=== PATIENT | female | born 1955 | race Caucasian/White ===

== ENCOUNTER 2018-05-17 22:23 | Emergency (ER) | payer MEDICAID ==
[2018-05-17] MEDS ORDERED: diphenhydrAMINE 25 MG Cap PO ONE (23:33)
--- NOTE | 2018-05-17 23:35 | EDM.PDOC ---
ED HPI GENERAL MEDICAL PROBLEM - General Chief Complaint: Allergic Reaction Stated Complaint: REACTION TO MED? Time Seen by Provider: 05/17/18 23:24 Source of Information: Reports: Patient, Family, RN Notes Reviewed History Limitations: Reports: No Limitations - History of Present Illness INITIAL COMMENTS - FREE TEXT/NARRATIVE: Recently started on 3 medications Combivent, levofloxacin, hydrochlorothiazide over the last 24 hours she feels that it might be hard to breathe and she's developed a rash on her lower extremities with some edema - Related Data Allergies Allergy/AdvReac Type Severity Reaction Status Date / Time No Known Allergies Allergy Verified 05/17/18 22:56 Home Meds: Home Meds Calcium Carb & Citrate/Vit D3 [Calcium + Vitamin D3 Caplet] 1 each PO DAILY [History] Omeprazole [Prilosec] 20 mg PO DAILY 08/19/14 [History] Albuterol/Ipratropium [Combivent Respimat] 4 gm IH QID 05/17/18 [History] Hydrochlorothiazide 12.5 mg PO DAILY 05/17/18 [History] Levofloxacin 500 mg PO DAILY 05/17/18 [History] Warfarin [Coumadin] 10 mg PO DAILY 05/17/18 [History] Past Medical History HEENT History: Reports: Impaired Vision Cardiovascular History: Reports: Blood Clots/VTE/DVT Other Cardiovascular History: had blood clots in lungs 4 years ago and then came back 4 weeks ago Gastrointestinal History: Reports: GERD, Hiatal Hernia 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 Denies: Wheezing Cardiovascular: Reports: No Symptoms GI/Abdominal: Reports: No Symptoms : Reports: No Symptoms Musculoskeletal: Reports: No Symptoms Skin: Reports: Pruritis, Rash ED EXAM GENERAL NO PERIP PULSE - Physical Exam Exam: See Below Exam Limited By: No Limitations General Appearance: Alert, WD/WN, No Apparent Distress Throat/Mouth: No Airway Compromise Respiratory/Chest: No Respiratory Distress, Lungs Clear, Normal Breath Sounds, No Accessory Muscle Use Cardiovascular: Regular Rate, Rhythm, No Murmur Skin Exam: Rash Course - Vital Signs Last Recorded V/S: Last Vital Signs Temp 97.7 F 05/17/18 23:12 Pulse 63 05/17/18 23:12 Resp 18 05/17/18 23:12 BP 142/71 H 05/17/18 23:51 Pulse Ox 97 05/17/18 23:12 - Orders/Labs/Meds Meds: Medications Discontinued Medications Generic Name Dose Route Start Last Admin Trade Name Freq PRN Reason Stop Dose Admin Diphenhydramine HCl 25 mg 05/17/18 23:33 05/17/18 23:48 Benadryl PO 05/17/18 23:34 25 mg ONETIME ONE Administration Departure - Departure Time of Disposition: 00:26 Disposition: Home, Self-Care 01 Condition: Good Clinical Impression: Medication reaction Qualifiers: Encounter type: initial encounter Qualified Code(s): T50.905A - Adverse effect of unspecified drugs, medicaments and biological substances, initial encounter - Discharge Information Referrals: Kel Jackson MD [Primary Care Provider] - Forms: ED Department Discharge Additional Instructions: Please keep your follow-up with your primary care tomorrow - Assessment/Plan Plan: Assessment Acuity = acute Site and laterality = medication reaction Etiology = unclear etiology Manifestations = none Location of injury = Home Lab values = none Plan She had good relief with Benadryl provided in emergency department plan is to stop all 3 of the medications she has a follow-up with her primary care tomorrow This note was dictated using [employer] voice recognition software please call with any questions on syntax or grammar.
[2018-05-17 23:52] VITALS: BP 142/71
== END 2018-05-18 00:37 | disposition home or self-care (01) ==
LOC: JP.ED 22:23
DX: L27.1 Localized skin eruption due to drugs and medicaments taken internally (principal); T48.6X5A Adverse effect of antiasthmatics, initial encounter; T36.8X5A Adverse effect of other systemic antibiotics, initial encounter; T50.2X5A Adverse effect of carbonic-anhydrase inhibitors, benzothiadiazides and other diuretics, initial encounter; Z79.899 Other long term (current) drug therapy
CPT/HCPCS: 99283; A9270

== ENCOUNTER 2018-08-07 06:58 | Day surgery (SDC) | payer MEDICARE, BC ==
[2018-08-07] MEDS ORDERED: fentaNYL 100 MCG/2 ML SDV ONE (07:12)
[2018-08-07] MEDS ORDERED: Propofol 200 MG/20 ML SDV ONE ×2 (07:12→09:13)
[2018-08-07] MEDS ORDERED: Midazolam 1 MG/ML 2 ML SDV ONE (07:12)
[2018-08-07] MEDS ORDERED: Dextrose 5%-Lactated Ringers 1,000 ML IV SCH (07:45)
[2018-08-07] MEDS ORDERED: Glycopyrrolate 0.2 MG/ML 2 ML SDV IVPUSH ONE (08:30)
[2018-08-07] MEDS ORDERED: Barium Sulfate 105% w/v Susp 1,900 ML Bottle PO ONE (09:51)
--- NOTE | 2018-08-07 11:00 | CR ---
Barium Enema Comp HISTORY: incomplete colonoscopy unable to advance scope FINDINGS: Single contrast barium enema study is obtained in the usual fashion. An enteric colon is fi lled to the level of the cecum. Contrast did not reflux into the terminal ileum. The colon appears wi thin normal limits in course and caliber. No constricting or obstructing mass lesion, polypoid fillin g defect, or mucosal abnormality is identified. Multiple diverticula are noted in the sigmoid colon. IMPRESSION: Mild diverticulosis sigmoid colon. No other abnormality of the colon is identified.
[2018-08-07 11:51] VITALS: BP 136/85
--- NOTE | 2018-08-11 07:46 | OR ---
DATE OF PROCEDURE: 08/07/2018 PREOPERATIVE DIAGNOSES: 1. History of large hiatal hernia. 2. Indications for screening colonoscopy. POSTOPERATIVE DIAGNOSES: 1. Large hiatal hernia with active gastroesophageal reflux disease. 2. Sigmoid colon diverticulosis with extremely redundant sigmoid colon preventing full colonoscopy. PROCEDURE: 1. Esophagogastroduodenoscopy with biopsy of esophagogastric junction. 2. Flexible colonoscopy (incomplete). ANESTHESIA: IV sedation. INDICATIONS FOR PROCEDURE: This is a 62-year-old female presenting with worsening gastroesophageal reflux symptoms. She was noted on imaging to have a large hiatal hernia and is interested in having a Michelle fundoplication, and in preparation for that to make sure there are no problems such as Warren's esophagus or other more advanced fundic changes, as well as assessing the overall anatomy, the patient is undergoing upper endoscopy with biopsies as indicated. The patient also meets criteria for screening colonoscopy, and that will be performed concurrently. Potential risks including bleeding and perforation were discussed, and the patient wishes to proceed. DESCRIPTION OF PROCEDURE: The patient was taken to the operating room and placed in a left lateral decubitus position. IV sedation was administered, after which the upper GI endoscope was passed orally through the length of the esophagus and into the stomach with retroflexion view of the fundus, thereafter through the pyloric channel and into the junction of the third and fourth portions of the duodenum. Findings included normal hypopharynx, larynx, upper esophageal sphincter, and esophageal body. The patient was noted to have a fairly large hiatal hernia, this measuring around 10 cm, and was associated with very active gastroesophageal reflux disease with there being linear upward extensions of the mucosal lining that were at this point reddened. These were not bleeding but certainly were intensely inflamed. There was no plaquing or stricturing or suggestion of neoplastic change. Within the stomach, there was no significant inflammation noted, and the visualized portions of the pyloric channel and duodenum were unremarkable. At this point, biopsies were obtained from esophagogastric junction, and minimal bleeding from the biopsy sites was seen and the procedure was then concluded. Attention was then taken to the colonoscopy. The initial digital rectal exam was performed, it was unremarkable. Colonoscope was passed into the rectum with retroflexion revealing some otherwise uncomplicated hemorrhoidal columns. The scope was able to be passed to roughly 40 cm. The patient was noted to that level to have somewhat complicated diverticulosis, likely related to the patient's sigmoid colon being very redundant. The scope could not be passed proximal to what essentially would be the area of the descending colon-sigmoid colon junction. As one manipulated the scope upward, it simply would not go around the sigmoid colon bend, and at that point, we decided, after various attempts at different positioning and such, to end the colonoscopy and complete the exam by means of the barium enema. The patient was taken to the recovery room in satisfactory condition. There were no evident complications. The patient subsequently underwent a barium enema x-ray that showed uncomplicated diverticulosis, but otherwise no pathology was seen, and the patient should undergo either repeat colonoscopy or barium enema x-ray in 10 years. With regard to the hiatal hernia, the patient would like to proceed with repair of this. This will be scheduled for mid August, as she has an upcoming trip. Royer Jones MD /[id number]
== END 2018-08-07 11:45 | disposition home or self-care (01) ==
LOC: JP.SDS 06:58
PROVIDERS: ATTEND Surgery
DX: K21.0 Gastro-esophageal reflux disease with esophagitis (principal); K44.9 Diaphragmatic hernia without obstruction or gangrene; Z12.11 Encounter for screening for malignant neoplasm of colon; K57.30 Diverticulosis of large intestine without perforation or abscess without bleeding; K31.89 Other diseases of stomach and duodenum; K63.89 Other specified diseases of intestine; E66.01 Morbid (severe) obesity due to excess calories; Z86.711 Personal history of pulmonary embolism; Z79.01 Long term (current) use of anticoagulants; Z88.1 Allergy status to other antibiotic agents
CPT/HCPCS: 43239; 45330; 74270; 88305; J2250; J2704; J3010; J3490; J7042

== ENCOUNTER 2021-03-18 15:53 | Emergency (ER) | payer MEDICARE, BC ==
[2021-03-18 16:07] VITALS: BP 150/99; PULSE 91
[2021-03-18] MEDS ORDERED: Bacitracin Oint 1 GM U/D Packet TOP ONE (16:28)
--- NOTE | 2021-03-18 17:32 | EDM.PDOC ---
ED HPI GENERAL MEDICAL PROBLEM - General Chief Complaint: Laceration Stated Complaint: CUT IN LT LEG Time Seen by Provider: 03/18/21 16:15 Source of Information: Reports: Patient, Family History Limitations: Reports: No Limitations - History of Present Illness INITIAL COMMENTS - FREE TEXT/NARRATIVE: 65-year-old female stumbled in the [place] today jamming the lateral aspect of her left lower leg into a sharp branch sticking out of a tree resulting in a laceration to her leg. The laceration occurred through her jeans, it did not lacerate the gene and the stick itself did not penetrate the wound. She has a 7.7 cm V shaped avulsion laceration on the lateral aspect of the left lower leg distal to the knee. No difficulty with ambulation, she is on Coumadin which she is concerned about but she has no active bleeding. Onset: Sudden Duration: Hour(s): (Within the last hour) Location: Reports: Lower Extremity, Left Associated Symptoms: Reports: No Other Symptoms - Related Data Allergies Allergy/AdvReac Type Severity Reaction Status Date / Time levofloxacin [From Levaquin] Allergy Rash Verified 03/18/21 16:11 Home Meds: Home Meds Acetaminophen [Tylenol] 650 mg PO Q6H #50 tablet 09/10/18 [Rx] Warfarin [Coumadin] 10 mg PO DAILY 03/18/21 [History] Past Medical History HEENT History: Reports: Impaired Vision Cardiovascular History: Reports: Blood Clots/VTE/DVT Other Cardiovascular History: had blood clots in lungs 4 years ago and then came back 4 weeks ago Respiratory History: Reports: Other (See Below) Other Respiratory History: PE Gastrointestinal History: Reports: GERD, Hiatal Hernia, 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 Dermatologic History: vericose vein - Infectious Disease History Infectious Disease History: Reports: Chicken Pox, Measles - Past Surgical History Respiratory Surgical History: Reports: None GI Surgical History: Reports: Colonoscopy, EGD Other Musculoskeletal Surgeries/Procedures:: Foot surgery Social & Family History - Tobacco Use Tobacco Use Status *Q: Never Tobacco User - Caffeine Use Caffeine Use: Reports: Coffee Other Caffeine Use: couple cups in morning - Recreational Drug Use Recreational Drug Use: No ED ROS GENERAL - Review of Systems Review Of Systems: See Below Constitutional: Denies: Fever, Chills Respiratory: Denies: Shortness of Breath Cardiovascular: Denies: Chest Pain GI/Abdominal: Denies: Nausea, Vomiting Skin: Reports: Other (As described in HPI) Neurological: Denies: Paresthesia (No distal paresthesia) Psychiatric: Reports: No Symptoms ED EXAM, SKIN/RASH Exam: See Below Exam Limited By: No Limitations General Appearance: Alert, No Apparent Distress Head: Atraumatic Respiratory/Chest: No Respiratory Distress, Lungs Clear Cardiovascular: Regular Rate, Rhythm Extremities: Other (Exam is otherwise limited to the left lower extremity. Patient has a 7.5 cm V-shaped avulsion laceration to the lateral aspect of the lower leg distal to the knee. It extends into the subcutaneous tissue.) Psychiatric: Normal Affect, Normal Mood Course - Vital Signs Last Recorded V/S: Last Vital Signs Temp 36.4 F L 03/18/21 16:10 Pulse 91 03/18/21 16:10 Resp 16 03/18/21 16:10 BP 150/99 H 03/18/21 16:10 Pulse Ox 98 03/18/21 16:10 - Orders/Labs/Meds Meds: Medications Discontinued Medications Generic Name Dose Route Start Last Admin Trade Name Vincent PRN Reason Stop Dose Admin Bacitracin 1 dose 03/18/21 16:28 03/18/21 16:56 Bacitracin Oint 1 Gm U/D Packet TOP 03/18/21 16:29 1 dose ONETIME ONE Administration Lidocaine HCl 5 ml 03/18/21 16:28 03/18/21 16:56 Lidocaine 1% 5 Ml Sdv INJECT 03/18/21 16:29 5 ml ONETIME ONE Administration - Re-Assessments/Exams Free Text/Narrative Re-Assessment/Exam: 03/18/21 18:47 The wound was anesthetized with 1% lidocaine, flushed thoroughly with saline, and nine 4-0 Ethilon sutures were used to approximate the flap over the laceration. There was some skin tear at the distal end that was missing exposing some dermis but no subcutaneous tissue. Topical bacitracin and a nonadherent dressing were applied, this should be left on until Friday and the wound reexamined in the clinic. Departure - Departure Time of Disposition: 17:33 Disposition: Home, Self-Care 01 Clinical Impression: Laceration of left lower leg Qualifiers: Encounter type: initial encounter Qualified Code(s): S81.812A - Laceration without foreign body, left lower leg, initial encounter - Discharge Information Instructions: Laceration Care, Adult Referrals: Maeve Russell PA-C [Primary Care Provider] - Forms: ED Department Discharge Care Plan Goals: Recheck at the clinic Friday to redress and inspect the wound, consider Dr. Cintron if possible for an opinion as to the healing process. Keep the wound clean and covered while healing and increase activity as tolerated. Sepsis Event Note (ED) - Evaluation Sepsis Screening Result: No Definite Risk - Focused Exam Vital Signs: Vital Signs Temp Pulse Resp BP Pulse Ox 03/18/21 16:10 36.4 F L 91 16 150/99 H 98 03/18/21 16:05 97.5 F 91 16 150/99 H 98
== END 2021-03-18 17:41 | disposition home or self-care (01) ==
LOC: JP.ED 15:53
DX: S81.812A Laceration without foreign body, left lower leg, initial encounter (principal); Z88.1 Allergy status to other antibiotic agents; Z86.718 Personal history of other venous thrombosis and embolism; Z79.01 Long term (current) use of anticoagulants; W26.8XXA Contact with other sharp object(s), not elsewhere classified, initial encounter
CPT/HCPCS: 12002; 99282; 99282-25

== ENCOUNTER 2022-05-18 08:43 | Emergency (ER) | payer MEDICARE, BC ==
[2022-05-18 08:58] VITALS: BP 166/91; PULSE 90
== END 2022-05-18 10:08 | disposition home or self-care (01) ==
LOC: JP.ED 08:43
DX: R04.0 Epistaxis (principal); Z88.1 Allergy status to other antibiotic agents; Z86.711 Personal history of pulmonary embolism; Z79.01 Long term (current) use of anticoagulants; W22.8XXA Striking against or struck by other objects, initial encounter
CPT/HCPCS: 99281; 99283

== ENCOUNTER 2022-12-30 06:25 | Day surgery (SDC) | payer MEDICARE, BC ==
[2022-12-30] MEDS ORDERED: Dextrose 5%-Lactated Ringers 1,000 ML IV SCH (07:00)
[2022-12-30] MEDS ORDERED: fentaNYL 100 MCG/2 ML SDV ONE (07:15)
[2022-12-30] MEDS ORDERED: Propofol 200 MG/20 ML SDV ONE (07:15)
[2022-12-30 09:35] VITALS: BP 128/69; PULSE 72
== END 2022-12-30 09:47 | disposition home or self-care (01) ==
LOC: JP.SDS 06:25
PROVIDERS: ATTEND Surgery
DX: K31.A0 Gastric intestinal metaplasia, unspecified (principal); K29.60 Other gastritis without bleeding; K44.9 Diaphragmatic hernia without obstruction or gangrene; K21.9 Gastro-esophageal reflux disease without esophagitis; E66.9 Obesity, unspecified; Z68.38 Body mass index [BMI] 38.0-38.9, adult; Z88.1 Allergy status to other antibiotic agents; Z79.899 Other long term (current) drug therapy
CPT/HCPCS: 36415; 43239; 85610; 87081; J2704; J3010; J7121

== ENCOUNTER 2023-01-16 07:47 | Inpatient (IN) | payer MEDICARE, BC ==
[2023-01-16] MEDS ORDERED: fentaNYL 250 MCG/5 ML SDV ONE ×2 (07:52→11:24)
[2023-01-16] MEDS ORDERED: Glycopyrrolate 0.2 MG/ML 5 ML MDV ONE (07:53)
[2023-01-16] MEDS ORDERED: Ondansetron 4 MG/2 ML SDV ONE (07:53)
[2023-01-16] MEDS ORDERED: Dexamethasone 4 MG/ML SDV ONE (07:53)
[2023-01-16] MEDS ORDERED: Rocuronium 50 MG/5 ML Vial ONE (07:53)
[2023-01-16] MEDS ORDERED: Propofol 200 MG/20 ML SDV ONE (07:53)
[2023-01-16] MEDS ORDERED: Succinylcholine 200 MG/10 ML MDV ONE (07:53)
[2023-01-16] MEDS ORDERED: Neostigmine Methylsulfate 1 MG/ML 5 ML Syringe ONE (07:53)
[2023-01-16] MEDS ORDERED: Ondansetron 4 MG/2 ML SDV IVPUSH PRN ×2 (08:12→16:00)
[2023-01-16] MEDS ORDERED: diphenhydrAMINE 50 MG/ML SDV IVPUSH PRN ×2 (08:12→16:00)
[2023-01-16] MEDS ORDERED: diphenhydrAMINE 25 MG Cap PO PRN (08:12)
[2023-01-16] MEDS ORDERED: Naloxone 0.4 MG/ML SDV IVPUSH PRN (08:12)
[2023-01-16] MEDS ORDERED: Celecoxib 200 MG Cap PO SCH (08:15)
[2023-01-16] MEDS ORDERED: Scopolamine 1.5 MG Transdermal Patch TOP ONE (08:15)
[2023-01-16] MEDS: HYDROmorphone/Normal Saline 6 MG/30 ML PCA Vial IV PRN (08:24)
[2023-01-16] MEDS ORDERED: Dextrose 5%-Lactated Ringers 1,000 ML IV SCH (09:00)
[2023-01-16] MEDS ORDERED: Naloxone 0.4 MG/ML SDV IV PRN (09:00)
[2023-01-16] MEDS ORDERED: Bupivacaine 0.5% 50 ML MDV ONE (09:17)
[2023-01-16] MEDS ORDERED: Meropenem 500 MG SDV ONE (09:17)
[2023-01-16] MEDS ORDERED: Lidocaine 1% with EPINEPHrine 1:100,000 50 ML MDV ONE (09:17)
[2023-01-16] MEDS ORDERED: cefOXitin 2 GM in Sodium Chloride 0.9% 50 ML IV ONE (09:30)
[2023-01-16] MEDS ORDERED: Ketamine 500 MG/5 ML MDV IV SCH (09:45)
[2023-01-16] MEDS ORDERED: Ketamine 16 MG in Sodium Chloride 0.9% 19.84 ML IV SCH (09:45)
[2023-01-16] MEDS ORDERED: Labetalol 20 MG/4 ML Syringe ONE (11:25)
[2023-01-16] MEDS ORDERED: Lactated Ringers 1,000 ML ONE (11:32)
[2023-01-16] MEDS ORDERED: Cyclobenzaprine 10 MG Tab PO PRN (15:02)
[2023-01-16] MEDS: Dextrose 5%-Lactated Ringers 1,000 ML IV SCH ×2 (15:26→21:33)
[2023-01-16] MEDS: cefOXitin 2 GM in Sodium Chloride 0.9% 50 ML IV SCH ×2 (15:47→21:26)
[2023-01-16] MEDS: MVI, Adult with Vitamin K 10 ML, Thiamine 200 MG, Zinc/Copper/Manganese/Selenium 1 ML i... IV SCH ×4 (15:49)
[2023-01-16] MEDS ORDERED: hydrOXYzine HCL 100 MG/2 ML SDV IM PRN (16:00)
[2023-01-16] MEDS ORDERED: Metoclopramide 10 MG/2 ML SDV IVPUSH PRN (16:00)
[2023-01-16] MEDS ORDERED: Acetaminophen 500 MG Tab PO PRN (16:00)
[2023-01-16] MEDS ORDERED: Labetalol 20 MG/4 ML Syringe IVPUSH PRN (16:00)
[2023-01-16] MEDS ORDERED: Pantoprazole 40 MG Vial IVPUSH SCH (16:00)
[2023-01-16] MEDS: Acetaminophen 500 MG Tab PO SCH (18:58)
[2023-01-16] MEDS: Enoxaparin 60 MG/0.6 ML Syringe SUBCUT SCH (19:00)
[2023-01-17] MEDS ORDERED: Iopamidol 612 MG/ML 30 ML SDV PO STA (03:00)
[2023-01-17] MEDS: cefOXitin 2 GM in Sodium Chloride 0.9% 50 ML IV SCH ×4 (03:35→23:39)
[2023-01-17] MEDS: Dextrose 5%-Lactated Ringers 1,000 ML IV SCH (03:35)
[2023-01-17] MEDS: Acetaminophen 500 MG Tab PO SCH ×3 (03:35→17:41)
[2023-01-17 04:24] LABS: ESTIMATED GFR 41 mL/min (>60)
[2023-01-17] MEDS ORDERED: Lactated Ringers 500 ML IV SCH (07:00)
[2023-01-17] MEDS ORDERED: Dextrose 5%-Lactated Ringers 1,000 ML IV SCH (08:15)
[2023-01-17] MEDS ORDERED: Lactated Ringers 500 ML IV ONE (09:00)
[2023-01-17] MEDS: Enoxaparin 60 MG/0.6 ML Syringe SUBCUT SCH ×2 (10:20→20:39)
[2023-01-17] MEDS: Hydrochlorothiazide 12.5 MG Cap PO SCH (10:21)
[2023-01-17] MEDS: Celecoxib 200 MG Cap PO SCH ×2 (10:21→20:39)
[2023-01-17] MEDS: SCOPOLAMINE PATCH CHECK TOP SCH (10:24)
[2023-01-17] MEDS: HYDROmorphone/Normal Saline 6 MG/30 ML PCA Vial IV PRN (11:58)
[2023-01-17] MEDS: MVI, Adult with Vitamin K 10 ML, Thiamine 200 MG, Zinc/Copper/Manganese/Selenium 1 ML i... IV SCH ×4 (15:18)
[2023-01-17] MEDS: Pantoprazole 40 MG Delayed-Release Granules 1 Packet PO SCH (15:22)
[2023-01-18] MEDS: Dextrose 5%-Lactated Ringers 1,000 ML IV SCH ×3 (02:33→19:28)
[2023-01-18] MEDS: cefOXitin 2 GM in Sodium Chloride 0.9% 50 ML IV SCH ×2 (03:36→09:50)
[2023-01-18] MEDS: Acetaminophen 500 MG Tab PO SCH (03:36)
[2023-01-18 04:46] LABS: ESTIMATED GFR 54 mL/min (>60)
[2023-01-18] MEDS ORDERED: Lidocaine 1% with EPINEPHrine 1:100,000 50 ML MDV ONE (06:51)
[2023-01-18] MEDS ORDERED: Bupivacaine 0.5% 50 ML MDV ONE (06:51)
[2023-01-18] MEDS ORDERED: Meropenem 500 MG SDV ONE (06:51)
[2023-01-18] MEDS ORDERED: ROPIVACAINE NERVRT SCH ×4 (07:15)
[2023-01-18] MEDS ORDERED: DEXAMETHASONE NERVRT SCH ×4 (07:15)
[2023-01-18] MEDS ORDERED: EPINEPHRINE NERVRT SCH ×4 (07:15)
[2023-01-18] MEDS ORDERED: SODIUM CHLORIDE 0.9% NERVRT SCH ×4 (07:15)
[2023-01-18] MEDS ORDERED: Midazolam 1 MG/ML 2 ML SDV ONE (07:22)
[2023-01-18] MEDS ORDERED: fentaNYL 100 MCG/2 ML SDV ONE (07:22)
[2023-01-18] MEDS ORDERED: Propofol 200 MG/20 ML SDV ONE (07:22)
[2023-01-18] MEDS ORDERED: Cyanocobalamin (Vitamin B12) 1,000 MCG/ML SDV IM ONE (09:00)
[2023-01-18] MEDS: Hydrochlorothiazide 12.5 MG Cap PO SCH (09:39)
[2023-01-18] MEDS: Bisacodyl 5 MG Tab PO SCH ×3 (09:39→20:28)
[2023-01-18] MEDS: Enoxaparin 60 MG/0.6 ML Syringe SUBCUT SCH ×2 (09:39→19:36)
[2023-01-18] MEDS: Celecoxib 200 MG Cap PO SCH ×3 (09:39→20:28)
[2023-01-18] MEDS: SCOPOLAMINE PATCH CHECK TOP SCH (09:40)
[2023-01-18] MEDS: Acetaminophen 160 MG Tab,Disintegrating PO SCH ×2 (11:49→19:36)
[2023-01-18] MEDS: HYDROmorphone 2 MG Tab PO PRN ×2 (14:08→18:19)
[2023-01-18] MEDS: Pantoprazole 40 MG Delayed-Release Granules 1 Packet PO SCH (15:59)
[2023-01-19] MEDS: Acetaminophen 160 MG Tab,Disintegrating PO SCH ×3 (04:28→19:35)
[2023-01-19] MEDS: Dextrose 5%-Lactated Ringers 1,000 ML IV SCH (04:28)
[2023-01-19] MEDS: Enoxaparin 60 MG/0.6 ML Syringe SUBCUT SCH ×2 (07:19→19:34)
[2023-01-19] MEDS: HYDROmorphone 2 MG Tab PO PRN (07:34)
[2023-01-19] MEDS ORDERED: hydrOXYzine HCl 50 MG/ML SDV IM PRN (08:42)
[2023-01-19] MEDS: Celecoxib 200 MG Cap PO SCH ×3 (09:09→20:17)
[2023-01-19] MEDS: Hydrochlorothiazide 12.5 MG Cap PO SCH (09:09)
[2023-01-19] MEDS: Bisacodyl 5 MG Tab PO SCH ×3 (09:09→20:17)
[2023-01-19] MEDS ORDERED: Sodium Chloride 0.9% 10 ML Syringe IV PRN (09:10)
[2023-01-19] MEDS ORDERED: Warfarin 5 MG Tab PO ONE (10:00)
[2023-01-19] MEDS: Pantoprazole 40 MG Delayed-Release Granules 1 Packet PO SCH (15:10)
[2023-01-20] MEDS: Acetaminophen 160 MG Tab,Disintegrating PO SCH (03:04)
[2023-01-20] MEDS: Enoxaparin 60 MG/0.6 ML Syringe SUBCUT SCH (08:52)
[2023-01-20 08:54] VITALS: BP 132/60; PULSE 98
[2023-01-20] MEDS: Celecoxib 200 MG Cap PO SCH (08:55)
[2023-01-20] MEDS: Hydrochlorothiazide 12.5 MG Cap PO SCH (08:55)
[2023-01-20] MEDS: Bisacodyl 5 MG Tab PO SCH (08:55)
== END 2023-01-20 10:30 | disposition home or self-care (01) | DRG 326 ==
LOC: JP.SDS 07:47 → JP.2SS 14:14
PROVIDERS: ADMIT Surgery; ATTEND Surgery
PROC: 0D150ZA Bypass Esophagus to Jejunum, Open Approach (ICD-10-PCS; principal; 2023-01-16)
PROC: 0BQT0ZZ Repair Diaphragm, Open Approach (ICD-10-PCS; 2023-01-16)
PROC: 0FB20ZZ Excision of Left Lobe Liver, Open Approach (ICD-10-PCS; 2023-01-16)
PROC: 0WQF0ZZ Repair Abdominal Wall, Open Approach (ICD-10-PCS; 2023-01-18)
DX: K21.9 Gastro-esophageal reflux disease without esophagitis (principal); D66 Hereditary factor VIII deficiency; K44.9 Diaphragmatic hernia without obstruction or gangrene; E66.9 Obesity, unspecified; I10 Essential (primary) hypertension; Z86.711 Personal history of pulmonary embolism; Z79.01 Long term (current) use of anticoagulants; Z79.899 Other long term (current) drug therapy; Z88.1 Allergy status to other antibiotic agents; Z68.36 Body mass index [BMI] 36.0-36.9, adult
CPT/HCPCS: 36415; 74240; 74240-26; 80053; 83735; 83880; 84100; 85025; 85027; 85610; 86850; 86900; 86901; A9270-GY; C9113; J0131; J0171; J0330; J0694; J1100; J1170; J1650; J2020; J2185; J2250; J2405; J2704; J2710; J2795; J3010; J3411; J3420; J3490; J7120; J7121; Q9967

== ENCOUNTER 2023-01-23 05:53 | Emergency (ER) | payer MEDICARE, BC ==
[2023-01-23 06:58] LABS: ESTIMATED GFR 80 mL/min (>60)
[2023-01-23] MEDS ORDERED: Lactated Ringers 1,000 ML IV ONE (07:29)
[2023-01-23] MEDS ORDERED: fentaNYL 100 MCG/2 ML SDV IVPUSH ONE (09:42)
[2023-01-23] MEDS ORDERED: HYDROmorphone 1 MG/ML Syringe IVPUSH ONE (10:34)
[2023-01-23] MEDS: HYDROmorphone 0.5 MG/0.5 ML Syringe IVPUSH PRN ×3 (13:44→20:46)
[2023-01-23] MEDS ORDERED: Non-Formulary Medication 1 Each (Hydrochlorothiazide [Hydrochlorothiazide] 12.5 MG Tablet) PO SCH (14:00)
[2023-01-23] MEDS ORDERED: Hydrochlorothiazide 12.5 MG Cap PO SCH (14:00)
[2023-01-24] MEDS: HYDROmorphone 0.5 MG/0.5 ML Syringe IVPUSH PRN (02:53)
[2023-01-24 08:19] VITALS: BP 160/72; PULSE 105
== END 2023-01-24 09:28 | disposition home or self-care (01) ==
LOC: JP.ED 05:53
DX: M79.81 Nontraumatic hematoma of soft tissue (principal); E66.9 Obesity, unspecified; Z68.36 Body mass index [BMI] 36.0-36.9, adult; Z88.1 Allergy status to other antibiotic agents; Z79.01 Long term (current) use of anticoagulants
CPT/HCPCS: 36415; 74176; 80048; 80053; 81001; 83605; 85025; 85610; 96361; 96374; 96375; 99285; A9270; J1170; J3010; J7120; U0002

== ENCOUNTER 2023-05-26 10:15 | Emergency (ER) | payer MEDICARE, BC ==
[2023-05-26] MEDS ORDERED: Lidocaine 1% with EPINEPHrine 1:100,000 50 ML MDV SUBCUT ONE (10:27)
[2023-05-26] MEDS ORDERED: Bacitracin Oint 1 GM U/D Packet TOP ONE (10:27)
[2023-05-26 10:59] LABS: HEMATOCRIT 36.1 % (34.3-46.0); HEMOGLOBIN 11.5 g/dL (11.2-15.5)
[2023-05-26 11:16] LABS: INR 1.6; PROTHROMBIN TIME 15.5 sec (9.2-10.6)
[2023-05-26 11:53] VITALS: BP 138/65; PULSE 86
[2023-05-26] MEDS ORDERED: ceFAZolin 1 GM Vial IM ONE (12:01)
[2023-05-26] MEDS ORDERED: Water For Injection, Sterile 20 ML ONE (12:09)
== END 2023-05-26 12:40 | disposition home or self-care (01) ==
LOC: JP.ED 10:15
DX: S81.812A Laceration without foreign body, left lower leg, initial encounter (principal); E66.9 Obesity, unspecified; Z68.27 Body mass index [BMI] 27.0-27.9, adult; Z79.01 Long term (current) use of anticoagulants; Z79.899 Other long term (current) drug therapy; W22.8XXA Striking against or struck by other objects, initial encounter
CPT/HCPCS: 12005; 36415; 85014; 85018; 85610; 96372; 99283; J0690

== ENCOUNTER 2023-08-21 08:59 | Inpatient (IN) | payer MEDICARE, BC ==
[~2023-08-21 08:59] MED LIST: Bupivacaine 0.5% 50 ML MDV ONE; Dexamethasone 4 MG/ML SDV ONE; Glycopyrrolate 0.2 MG/ML 5 ML MDV ONE; Lidocaine 1% with EPINEPHrine 1:100,000 50 ML MDV ONE; Meropenem 500 MG SDV ONE; Neostigmine Methylsulfate 1 MG/ML 5 ML Syringe ONE; Ondansetron 4 MG/2 ML SDV ONE; Propofol 200 MG/20 ML SDV ONE; Rocuronium 50 MG/5 ML Vial ONE; Succinylcholine 200 MG/10 ML MDV ONE; fentaNYL 250 MCG/5 ML SDV ONE
[2023-08-21] MEDS ORDERED: Scopolamine 1.5 MG Transdermal Patch TOP SCH (09:30)
[2023-08-21] MEDS ORDERED: Dextrose 5%-Lactated Ringers 1,000 ML IV SCH ×2 (09:30→15:45)
[2023-08-21 09:49] LABS: PROTHROMBIN TIME 10.3 sec (9.2-10.6)
[2023-08-21] MEDS ORDERED: Naloxone 0.4 MG/ML SDV IV PRN (10:00)
[2023-08-21] MEDS ORDERED: ceFAZolin 2 GM in Premix Bag 1 BAG IV ONE (10:30)
[2023-08-21] MEDS ORDERED: Ketamine 500 MG/5 ML MDV IV SCH (10:45)
[2023-08-21] MEDS ORDERED: Ketamine 15 MG in Sodium Chloride 0.9% 19.85 ML IV SCH (10:45)
[2023-08-21] MEDS ORDERED: Meropenem 500 MG SDV ONE (12:23)
[2023-08-21] MEDS ORDERED: Lactated Ringers 1,000 ML ONE (12:25)
[2023-08-21] MEDS: HYDROmorphone/Normal Saline 6 MG/30 ML PCA Vial IV PRN (12:50)
[2023-08-21] MEDS ORDERED: Linezolid 600 MG/300 ML Premix Bag IRR ONE (13:00)
[2023-08-21] MEDS ORDERED: fentaNYL 100 MCG/2 ML SDV ONE (13:59)
[2023-08-21] MEDS ORDERED: Cyclobenzaprine 10 MG Tab PO PRN (15:31)
[2023-08-21] MEDS ORDERED: Ondansetron 4 MG/2 ML SDV IVPUSH PRN (16:00)
[2023-08-21] MEDS ORDERED: Acetaminophen 500 MG Tab PO PRN (16:00)
[2023-08-21] MEDS ORDERED: diphenhydrAMINE 50 MG/ML SDV IVPUSH PRN (16:00)
[2023-08-21] MEDS ORDERED: Labetalol 20 MG/4 ML Syringe IVPUSH PRN (16:00)
[2023-08-21] MEDS ORDERED: Metoclopramide 10 MG/2 ML SDV IVPUSH PRN (16:00)
[2023-08-21] MEDS ORDERED: hydrOXYzine HCL 100 MG/2 ML SDV IM PRN (16:00)
[2023-08-21] MEDS: MVI, Adult with Vitamin K 10 ML, Thiamine 200 MG, Zinc/Copper/Manganese/Selenium 1 ML i... IV SCH ×4 (17:15)
[2023-08-21] MEDS: SCOPOLAMINE PATCH CHECK TOP SCH (17:16)
[2023-08-21] MEDS: Heparin Sodium 5,000 Units/ML Vial SUBCUT SCH (17:16)
[2023-08-21] MEDS: Pantoprazole 40 MG Vial IVPUSH SCH (17:17)
[2023-08-21] MEDS: cefOXitin 2 GM in Sodium Chloride 0.9% 50 ML IV SCH ×2 (17:31→23:38)
[2023-08-22] MEDS: Heparin Sodium 5,000 Units/ML Vial SUBCUT SCH ×3 (01:12→17:00)
[2023-08-22] MEDS ORDERED: Iopamidol 612 MG/ML 50 ML SDV PO ONE (03:53)
[2023-08-22] MEDS: HYDROmorphone/Normal Saline 6 MG/30 ML PCA Vial IV PRN (03:58)
[2023-08-22] MEDS: cefOXitin 2 GM in Sodium Chloride 0.9% 50 ML IV SCH ×4 (06:01→23:59)
[2023-08-22] MEDS: Docusate Sodium 100 MG Cap PO SCH ×2 (08:47→20:45)
[2023-08-22] MEDS: Celecoxib 200 MG Cap PO SCH ×2 (08:47→20:45)
[2023-08-22] MEDS: Bisacodyl 5 MG Tab PO SCH ×2 (08:47→20:45)
[2023-08-22] MEDS: Dextrose 5%-Lactated Ringers 1,000 ML IV SCH (08:49)
[2023-08-22] MEDS: SCOPOLAMINE PATCH CHECK TOP SCH (08:50)
[2023-08-22] MEDS ORDERED: Warfarin 5 MG Tab PO ONE (09:00)
[2023-08-22] MEDS: MVI, Adult with Vitamin K 10 ML, Thiamine 200 MG, Zinc/Copper/Manganese/Selenium 1 ML i... IV SCH ×4 (16:54)
[2023-08-22] MEDS: Acetaminophen 500 MG Tab PO SCH ×2 (16:55→23:59)
[2023-08-22] MEDS: Pantoprazole 40 MG Vial IVPUSH SCH (16:55)
[2023-08-23] MEDS: Heparin Sodium 5,000 Units/ML Vial SUBCUT SCH ×3 (02:32→18:12)
[2023-08-23] MEDS: Dextrose 5%-Lactated Ringers 1,000 ML IV SCH (02:36)
[2023-08-23 05:13] LABS: INR 1.1; PROTHROMBIN TIME 10.9 sec (9.2-10.6)
[2023-08-23] MEDS: cefOXitin 2 GM in Sodium Chloride 0.9% 50 ML IV SCH ×2 (05:46→12:38)
[2023-08-23] MEDS ORDERED: Cyanocobalamin (Vitamin B12) 1,000 MCG/ML SDV IM ONE (09:00)
[2023-08-23] MEDS ORDERED: HYDROmorphone 2 MG Tab PO PRN (09:52)
[2023-08-23] MEDS ORDERED: Dextrose 5%-Lactated Ringers 1,000 ML IV SCH (10:00)
[2023-08-23] MEDS: Acetaminophen 500 MG Tab PO SCH ×3 (10:23→23:34)
[2023-08-23] MEDS: Celecoxib 200 MG Cap PO SCH ×2 (10:23→20:40)
[2023-08-23] MEDS: Bisacodyl 5 MG Tab PO SCH ×2 (10:23→20:40)
[2023-08-23] MEDS: SCOPOLAMINE PATCH CHECK TOP SCH (10:24)
[2023-08-23] MEDS: Docusate Sodium 100 MG Cap PO SCH ×2 (10:24→20:40)
[2023-08-23] MEDS ORDERED: Warfarin 5 MG Tab PO ONE (13:00)
[2023-08-23] MEDS: Pantoprazole 40 MG Vial IVPUSH SCH (16:03)
[2023-08-24] MEDS: Heparin Sodium 5,000 Units/ML Vial SUBCUT SCH (01:11)
[2023-08-24 05:14] LABS: INR 1.1; PROTHROMBIN TIME 11.5 sec (9.2-10.6)
[2023-08-24 05:55] VITALS: BP 150/78; PULSE 80
[2023-08-24] MEDS ORDERED: Magnesium Hydroxide 400 MG/5 ML Susp 30 ML Cup PO PRN (08:45)
[2023-08-24] MEDS ORDERED: Warfarin 5 MG Tab PO ONE (08:45)
[2023-08-24] MEDS ORDERED: Enoxaparin 100 MG/1 ML Syringe SUBCUT ONE (08:45)
[2023-08-24] MEDS: Acetaminophen 500 MG Tab PO SCH (09:04)
[2023-08-24] MEDS: Bisacodyl 5 MG Tab PO SCH (09:06)
[2023-08-24] MEDS: Docusate Sodium 100 MG Cap PO SCH (09:06)
[2023-08-24] MEDS: Celecoxib 200 MG Cap PO SCH (09:06)
== END 2023-08-24 09:40 | disposition still patient (30) | DRG 326 ==
LOC: JP.SDS 08:59 → JP.MS 14:10 → UNDOADMIN 14:50
PROVIDERS: ADMIT Surgery; ATTEND Surgery
PROC: 0D160ZA Bypass Stomach to Jejunum, Open Approach (ICD-10-PCS; principal; 2023-08-21)
PROC: 0WUF0JZ Supplement Abdominal Wall with Synthetic Substitute, Open Approach (ICD-10-PCS; 2023-08-21)
PROC: 3E0M05Z Introduction of Adhesion Barrier into Peritoneal Cavity, Open Approach (ICD-10-PCS; 2023-08-21)
PROC: 0DQA0ZZ Repair Jejunum, Open Approach (ICD-10-PCS; 2023-08-21)
PROC: 0DQ80ZZ Repair Small Intestine, Open Approach (ICD-10-PCS; 2023-08-21)
DX: K91.89 Other postprocedural complications and disorders of digestive system (principal); D66 Hereditary factor VIII deficiency; K43.0 Incisional hernia with obstruction, without gangrene; Z20.822 Contact with and (suspected) exposure to COVID-19; E66.01 Morbid (severe) obesity due to excess calories; I10 Essential (primary) hypertension; K21.9 Gastro-esophageal reflux disease without esophagitis; Z86.711 Personal history of pulmonary embolism; Z79.01 Long term (current) use of anticoagulants; Z79.899 Other long term (current) drug therapy; Z98.890 Other specified postprocedural states; Z88.1 Allergy status to other antibiotic agents; Z68.25 Body mass index [BMI] 25.0-25.9, adult; Z98.84 Bariatric surgery status
CPT/HCPCS: 36415; 43848; 44615; 49596; 82728; 85610; 88302; 88307; A9270; C1713; C1781; J0171; J0330; J0690; J1100 ×2; J1170; J2020; J2185 ×2; J2405; J2704; J2710; J2795; J3010 ×2; J3490 ×3; J7120; J7121; U0002; 74240; 74240-26; C9113; J0694; J1644; J1650; J3411; J3420; Q9967

== ENCOUNTER 2023-12-21 10:10 | Inpatient (IN) | payer MEDICARE, BC ==
[2023-12-21 11:35] LABS: BASOPHILS ABSOLUTE AUTO 0.08 K/uL (0.00-0.10); BASOPHILS PERCENT AUTO 0.6 % (0.1-1.3); EOSINOPHILS ABSOLUTE AUTO 0.23 K/uL (0.00-0.40); EOSINOPHILS PERCENT AUTO 1.7 % (0.0-5.4); HEMATOCRIT 36.6 % (34.3-46.0); HEMOGLOBIN 11.7 g/dL (11.2-15.5); IMMATURE GRAN ABSOLUTE AUTO 0.07 K/uL (0.00-0.23); IMMATURE GRAN PERCENT AUTO 0.5 % (0.0-0.7); LYMPHOCYTES ABSOLUTE AUTO 1.48 K/uL (0.8-3.3); LYMPHOCYTES PERCENT AUTO 10.9 % (11.4-47.7); MEAN CORPUSCULAR HEMOGLOBIN 27.6 pg (31.6-35.5); MEAN CORPUSCULAR VOLUME 86.3 fL (81.4-99.0); MONOCYTES ABSOLUTE AUTO 0.66 K/uL (0.20-0.90); MONOCYTES PERCENT AUTO 4.8 % (3.3-12.6); NEUTROPHILS ABSOLUTE AUTO 11.12 K/uL (1.0-7.6); NEUTROPHILS PERCENT AUTO 81.5 % (40.0-78.1); PLATELET COUNT,PLT 219 K/uL (130-375); RED BLOOD CELL COUNT 4.24 M/uL (3.77-5.24); WHITE BLOOD CELL COUNT,WBC 13.6 K/uL (3.2-11.0)
[2023-12-21 11:53] LABS: INR 2.7; PROTHROMBIN TIME 25.6 sec (9.2-10.6); PTT,PARTIAL THROMBOPLSTIN TIME 33.2 sec (21.8-27.3)
[2023-12-21 11:57] LABS: A/G RATIO 0.8 (1.2-2.2); ALANINE AMINOTRANSFERASE,ALT 70 U/L (12-78); ALKALINE PHOSPHATASE 160 U/L (46-116); ASPARTATE AMNIOTRANSFERASE,AST 159 U/L (15-37); BILIRUBIN TOTAL 0.8 mg/dL (0.2-1.0); BLOOD UREA NITROGEN,BUN 21 mg/dL (7-18); CALCIUM 8.3 mg/dL (8.5-10.1); CARBON DIOXIDE,CO2 26 mmol/L (21-32); CHLORIDE,CL 104 mmol/L (100-108); CREATININE 0.8 mg/dL (0.6-1.0); ESTIMATED GFR 79 mL/min (>60); GLUCOSE RANDOM 109 mg/dL (74-106); POTASSIUM,K 4.8 mmol/L (3.6-5.2); PROTEIN TOTAL,TP 6.6 g/dL (6.4-8.2); SODIUM,NA 139 mmol/L (140-148); TROPONIN I HIGH SENSITIVITY 6.5 pg/mL (<=60.3)
[2023-12-21 12:06] LABS: ANION GAP 13.8 mmol/L (5.0-14.0); C-REACTIVE PROTEIN < 0.50 mg/dL (<0.50)
[2023-12-21] MEDS ORDERED: Iopamidol 612 MG/ML 100 ML Bottle IV SCH (12:45)
[2023-12-21] MEDS ORDERED: Sodium Chloride 0.9% 50 ML IV SCH (12:45)
[2023-12-21 15:49] LABS: CORONAVIRUS COVID-19 NAA NEGATIVE (NEGATIVE); INFLUENZA A NAA NEGATIVE (NEGATIVE); INFLUENZA B NAA NEGATIVE (NEGATIVE); RESPIRATORY SYNCYTIAL VIR NAA NEGATIVE (NEGATIVE)
[2023-12-21] MEDS ORDERED: Melatonin 3 MG Tab PO PRN (16:44)
[2023-12-21] MEDS ORDERED: Acetaminophen 325 MG Tab PO PRN (16:44)
[2023-12-21] MEDS ORDERED: Ondansetron 4 MG/2 ML SDV IV PRN (16:44)
[2023-12-21] MEDS ORDERED: HYDROmorphone 1 MG/ML Syringe IVPUSH PRN (16:44)
[2023-12-21] MEDS ORDERED: Sennosides/Docusate Sodium 50-8.6 MG Tab PO PRN (16:44)
[2023-12-21] MEDS ORDERED: Ondansetron 4 MG Tab.DIS PO PRN (16:44)
[2023-12-21] MEDS ORDERED: Magnesium Hydroxide 400 MG/5 ML Susp 30 ML Cup PO PRN (16:44)
[2023-12-21] MEDS ORDERED: HYDROmorphone 0.5 MG/0.5 ML Syringe IVPUSH PRN (16:47)
[2023-12-21] MEDS: Dextrose 5%-Lactated Ringers 1,000 ML IV SCH (17:15)
[2023-12-21] MEDS: Pantoprazole 40 MG Vial IV SCH (17:15)
[2023-12-21] MEDS: Piperacillin/Tazobactam 3.375 GM in Sodium Chloride 0.9% 50 ML IV SCH ×2 (17:16→22:46)
[2023-12-22 04:36] LABS: HEMATOCRIT 35.4 % (34.3-46.0); HEMOGLOBIN 11.3 g/dL (11.2-15.5); MEAN CORPUSCULAR HGB CONC 31.9 g/dL (31.6-35.5); MEAN CORPUSCULAR VOLUME 84.7 fL (81.4-99.0); RED BLOOD CELL COUNT 4.18 M/uL (3.77-5.24); WHITE BLOOD CELL COUNT,WBC 8.3 K/uL (3.2-11.0)
[2023-12-22 04:54] LABS: INR 3.4; PROTHROMBIN TIME 31.9 sec (9.2-10.6)
[2023-12-22 05:00] LABS: A/G RATIO 0.9 (1.2-2.2); ALANINE AMINOTRANSFERASE,ALT 148 U/L (12-78); ALBUMIN 2.8 g/dL (3.4-5.0); ALKALINE PHOSPHATASE 163 U/L (46-116); BILIRUBIN TOTAL 0.8 mg/dL (0.2-1.0); BLOOD UREA NITROGEN,BUN 14 mg/dL (7-18); CALCIUM 8.5 mg/dL (8.5-10.1); CARBON DIOXIDE,CO2 29 mmol/L (21-32); CHLORIDE,CL 104 mmol/L (100-108); CREATININE 0.7 mg/dL (0.6-1.0); EST CRCL DRUG DOSING (CG) 64.58 mL/min; ESTIMATED GFR 93 mL/min (>60); GLUCOSE RANDOM 116 mg/dL (74-106); POTASSIUM,K 4.6 mmol/L (3.6-5.2); PROTEIN TOTAL,TP 5.9 g/dL (6.4-8.2); SODIUM,NA 139 mmol/L (140-148)
[2023-12-22 05:16] LABS: ANION GAP 10.6 mmol/L (5.0-14.0); ASPARTATE AMNIOTRANSFERASE,AST 179 U/L (15-37)
[2023-12-22] MEDS: Piperacillin/Tazobactam 3.375 GM in Sodium Chloride 0.9% 50 ML IV SCH (05:20)
[2023-12-22] MEDS: Dextrose 5%-Lactated Ringers 1,000 ML IV SCH ×2 (05:22→21:44)
[2023-12-22] MEDS ORDERED: LORazepam 2 MG/ML SDV IVPUSH ONE (08:15)
[2023-12-22] MEDS: Piperacillin/Tazobactam/Dext 3.375 GM in Premix Bag 1 BAG IV SCH ×3 (10:05→22:09)
[2023-12-22] MEDS: Pantoprazole 40 MG Vial IV SCH (16:29)
[2023-12-23 05:37] VITALS: BP 135/66; PULSE 59
[2023-12-23] MEDS: Piperacillin/Tazobactam/Dext 3.375 GM in Premix Bag 1 BAG IV SCH (05:38)
[2023-12-23 05:58] LABS: HEMATOCRIT 34.1 % (34.3-46.0); MEAN CORPUSCULAR HEMOGLOBIN 27.4 pg (31.6-35.5); MEAN CORPUSCULAR HGB CONC 32.3 g/dL (31.6-35.5); MEAN CORPUSCULAR VOLUME 84.8 fL (81.4-99.0); RED BLOOD CELL COUNT 4.02 M/uL (3.77-5.24); WHITE BLOOD CELL COUNT,WBC 5.6 K/uL (3.2-11.0)
[2023-12-23 06:23] LABS: A/G RATIO 0.8 (1.2-2.2); ALANINE AMINOTRANSFERASE,ALT 99 U/L (12-78); ALBUMIN 2.7 g/dL (3.4-5.0); ALKALINE PHOSPHATASE 138 U/L (46-116); ANION GAP 6.3 mmol/L (5.0-14.0); ASPARTATE AMNIOTRANSFERASE,AST 72 U/L (15-37); BILIRUBIN TOTAL 0.8 mg/dL (0.2-1.0); BLOOD UREA NITROGEN,BUN 6 mg/dL (7-18); CALCIUM 8.4 mg/dL (8.5-10.1); CARBON DIOXIDE,CO2 29 mmol/L (21-32); CHLORIDE,CL 105 mmol/L (100-108); CREATININE 0.7 mg/dL (0.6-1.0); EST CRCL DRUG DOSING (CG) 64.58 mL/min; ESTIMATED GFR 93 mL/min (>60); GLUCOSE RANDOM 105 mg/dL (74-106); POTASSIUM,K 3.8 mmol/L (3.6-5.2); PROTEIN TOTAL,TP 5.9 g/dL (6.4-8.2); SODIUM,NA 140 mmol/L (140-148)
[2023-12-23] MEDS ORDERED: Acetaminophen 500 MG Tab PO PRN (09:38)
[2023-12-23 10:06] LABS: INR 2.5; PROTHROMBIN TIME 23.6 sec (9.2-10.6)
[2023-12-23] MEDS ORDERED: Calcium Carbonate/Vitamin D3 1500 MG-400 Units Tab PO SCH (21:00)
[2023-12-23] MEDS ORDERED: Multivitamins with Iron Tab.Chew CHEW SCH (21:00)
[2023-12-24] MEDS ORDERED: Potassium Chloride 10 MEQ Cap.ER PO SCH (09:00)
[2023-12-24] MEDS ORDERED: Cyanocobalamin (Vitamin B12) 1,000 MCG Tab SL SCH (09:00)
[2023-12-24] MEDS ORDERED: Docusate Sodium 100 MG Cap PO SCH (09:00)
[2023-12-24] MEDS ORDERED: Vitamin B Complex Tab PO SCH (09:00)
[2023-12-24] MEDS ORDERED: Warfarin 2.5 MG Tab PO SCH (13:00)
== END 2023-12-23 10:50 | disposition home or self-care (01) | DRG 440 ==
LOC: JP.ED 10:10 → JP.MS 15:38
PROVIDERS: ADMIT Internal Medicine; ATTEND Internal Medicine
DX: K85.10 Biliary acute pancreatitis without necrosis or infection (principal); K80.20 Calculus of gallbladder without cholecystitis without obstruction; E66.9 Obesity, unspecified; K21.9 Gastro-esophageal reflux disease without esophagitis; Z88.1 Allergy status to other antibiotic agents; Z68.23 Body mass index [BMI] 23.0-23.9, adult; Z87.11 Personal history of peptic ulcer disease; Z79.01 Long term (current) use of anticoagulants; Z86.711 Personal history of pulmonary embolism; Z79.899 Other long term (current) drug therapy
CPT/HCPCS: 0241U; 36415; 71046; 74019; 74177; 74181; 80053; 83690; 83735; 84484; 85025; 85027; 85610; 85651; 85730; 86140; 93005; 93010; 99222; 99232; 99239; 99285; C9113; J2060; J2543; J3490; J7121; Q9967

== ENCOUNTER 2024-11-15 05:53 | Day surgery (SDC) | payer MEDICARE, BC ==
[2024-11-15] MEDS: Lactated Ringers 1,000 ML IV SCH (06:52)
[2024-11-15] MEDS ORDERED: Glycopyrrolate 0.2 MG/ML 5 ML MDV ONE (07:15)
[2024-11-15] MEDS ORDERED: Neostigmine Methylsulfate 10 MG/10 ML MDV ONE (07:15)
[2024-11-15] MEDS ORDERED: Propofol 200 MG/20 ML SDV ONE (07:15)
[2024-11-15] MEDS ORDERED: Rocuronium 50 MG/5 ML Vial ONE (07:15)
[2024-11-15] MEDS ORDERED: fentaNYL 250 MCG/5 ML SDV ONE (07:15)
[2024-11-15] MEDS ORDERED: Dexamethasone 4 MG/ML SDV ONE (07:15)
[2024-11-15] MEDS ORDERED: Ondansetron 4 MG/2 ML SDV ONE (07:15)
[2024-11-15] MEDS: ceFAZolin 2 GM in Premix Bag 1 BAG IV ONE (07:30)
[2024-11-15] MEDS: Bupivacaine 0.25%/EPINEPHrine 1:200,000 30 ML SDV ONE (08:00)
[2024-11-15] MEDS ORDERED: Lactated Ringers 1,000 ML ONE (08:30)
[2024-11-15] MEDS: Iopamidol 612 MG/ML 30 ML SDV ONE (08:45)
[2024-11-15] MEDS: fentaNYL 50 MCG/ML SDV IVPUSH ONE (09:28)
[2024-11-15] MEDS ORDERED: fentaNYL 50 MCG/ML SDV IVPUSH ONE (10:45)
[2024-11-15] MEDS: Ondansetron 4 MG/2 ML SDV IVPUSH PRN (10:46)
[2024-11-15] MEDS: Acetaminophen/HYDROcodone 325-5 MG Tab PO PRN (11:59)
[2024-11-15 12:01] VITALS: BP 140/65; PULSE 82
== END 2024-11-15 12:32 | disposition home or self-care (01) ==
LOC: JP.SDS 05:53
PROVIDERS: ATTEND Surgery
DX: K80.10 Calculus of gallbladder with chronic cholecystitis without obstruction (principal); I11.0 Hypertensive heart disease with heart failure; I50.9 Heart failure, unspecified; Z98.84 Bariatric surgery status; K21.9 Gastro-esophageal reflux disease without esophagitis; Z79.899 Other long term (current) drug therapy
CPT/HCPCS: 00790; 43235; 47562; A9270; C1894; J0690; J1100; J1596; J2405; J2704; J2710; J3010; J7120; Q9967; 88304; J3490

== ENCOUNTER 2025-03-01 18:29 | Emergency (ER) | payer MEDICARE, BC ==
[2025-03-01 19:45] LABS: BASOPHILS ABSOLUTE AUTO 0.08 K/uL (0.00-0.10); BASOPHILS PERCENT AUTO 0.7 % (0.1-1.3); EOSINOPHILS ABSOLUTE AUTO 0.34 K/uL (0.00-0.40); EOSINOPHILS PERCENT AUTO 3.1 % (0.0-5.4); HEMATOCRIT 37.6 % (34.3-46.0); HEMOGLOBIN 12.1 g/dL (11.2-15.5); IMMATURE GRAN ABSOLUTE AUTO 0.03 K/uL (0.00-0.23); IMMATURE GRAN PERCENT AUTO 0.3 % (0.0-0.7); LYMPHOCYTES ABSOLUTE AUTO 1.97 K/uL (0.8-3.3); LYMPHOCYTES PERCENT AUTO 17.8 % (11.4-47.7); MEAN CORPUSCULAR HGB CONC 32.2 g/dL (31.6-35.5); MONOCYTES ABSOLUTE AUTO 0.83 K/uL (0.20-0.90); MONOCYTES PERCENT AUTO 7.5 % (3.3-12.6); NEUTROPHILS PERCENT AUTO 70.6 % (40.0-78.1); PLATELET COUNT,PLT 270 K/uL (130-375); RED BLOOD CELL COUNT 4.32 M/uL (3.77-5.24); WHITE BLOOD CELL COUNT,WBC 11.1 K/uL (3.2-11.0)
[2025-03-01] MEDS: Iopamidol 612 MG/ML 100 ML Bottle IV SCH (20:03)
[2025-03-01] MEDS: Sodium Chloride 0.9% 80 ML IV SCH (20:03)
[2025-03-01 20:07] LABS: A/G RATIO 0.8 (1.2-2.2); ALANINE AMINOTRANSFERASE,ALT 17 U/L (12-78); ALKALINE PHOSPHATASE 142 U/L (46-116); ANION GAP 14.5 mmol/L (5.0-14.0); ASPARTATE AMNIOTRANSFERASE,AST 23 U/L (15-37); BILIRUBIN TOTAL 0.7 mg/dL (0.2-1.0); BLOOD UREA NITROGEN,BUN 17 mg/dL (7-18); C-REACTIVE PROTEIN 2.06 mg/dL (<0.50); CALCIUM 9.1 mg/dL (8.5-10.1); CARBON DIOXIDE,CO2 27 mmol/L (21-32); CHLORIDE,CL 101 mmol/L (100-108); CREATININE 0.7 mg/dL (0.6-1.0); EST CRCL DRUG DOSING (CG) 63.65 mL/min; ESTIMATED GFR 92 mL/min (>60); GLUCOSE RANDOM 98 mg/dL (74-106); POTASSIUM,K 4.5 mmol/L (3.6-5.2); SODIUM,NA 138 mmol/L (140-148)
[2025-03-01 21:27] LABS: INR 3.9; PROTHROMBIN TIME 37.3 sec (9.2-10.6)
[2025-03-01] MEDS: Piperacillin/Tazobactam 4.5 GM in Sodium Chloride 0.9% 100 ML IV ONE (21:31)
[2025-03-01] MEDS: VANCOmycin 1.25 GM in Sodium Chloride 0.9% 250 ML IV ONE (22:03)
[2025-03-01] MEDS ORDERED: Sennosides/Docusate Sodium 50-8.6 MG Tab PO PRN (23:41)
[2025-03-01] MEDS ORDERED: Melatonin 3 MG Tab PO PRN (23:41)
[2025-03-01] MEDS ORDERED: Acetaminophen 325 MG Tab PO PRN (23:41)
[2025-03-01] MEDS ORDERED: Ondansetron 4 MG/2 ML SDV IV PRN (23:41)
[2025-03-01] MEDS ORDERED: Ondansetron 4 MG Tab.DIS PO PRN (23:41)
[2025-03-02] MEDS: Sodium Chloride 0.9% 1,000 ML IV SCH (00:24)
[2025-03-02] MEDS: Piperacillin/Tazobactam 4.5 GM in Sodium Chloride 0.9% 100 ML IV SCH ×2 (01:21→02:13)
[2025-03-02 06:01] LABS: HEMATOCRIT 35.8 % (34.3-46.0); HEMOGLOBIN 11.5 g/dL (11.2-15.5); MEAN CORPUSCULAR HEMOGLOBIN 27.8 pg (31.6-35.5); MEAN CORPUSCULAR HGB CONC 32.1 g/dL (31.6-35.5); MEAN CORPUSCULAR VOLUME 86.5 fL (81.4-99.0); RED BLOOD CELL COUNT 4.14 M/uL (3.77-5.24); WHITE BLOOD CELL COUNT,WBC 9.5 K/uL (3.2-11.0)
[2025-03-02 06:12] LABS: CALCIUM 8.9 mg/dL (8.5-10.1); CREATININE 0.7 mg/dL (0.6-1.0); EST CRCL DRUG DOSING (CG) 63.65 mL/min; INR 3.7; PROTHROMBIN TIME 35.8 sec (9.2-10.6)
[2025-03-02] MEDS: VANCOmycin 0.75 GM in Sodium Chloride 0.9% 250 ML IV SCH (09:39)
[2025-03-02] MEDS: Piperacillin/Tazobactam/Dext 4.5 GM in Premix Bag 1 BAG IV SCH (11:05)
[2025-03-02] MEDS: Lactobacillus Rhamnosus GG (Probiotic) Cap PO SCH (11:06)
[2025-03-02] MEDS ORDERED: VANCOmycin 1.5 GM in Sodium Chloride 0.9% 250 ML IV SCH (21:00)
[2025-03-03] MEDS: Lidocaine 1% 20 ML MDV INJECT ONE (14:58)
[2025-03-03 15:45] VITALS: BP 124/81; PULSE 92
== END 2025-03-03 16:11 | disposition home or self-care (01) ==
LOC: JP.ED 18:29 → JP.MS 22:53
PROVIDERS: ADMIT Registered Nurse; ATTEND Surgery
DX: L02.211 Cutaneous abscess of abdominal wall (principal); Z98.84 Bariatric surgery status; Z88.1 Allergy status to other antibiotic agents; Z79.01 Long term (current) use of anticoagulants; Z79.899 Other long term (current) drug therapy
CPT/HCPCS: 36415; 74177; 75989; 76942; 80048; 80053; 80202; 83605; 85025; 85027; 85610; 86140; 87070; 87077; 87186; 87205; 96365; 96366; 96367; 99221; 99239; 99284; 99285; A9270; C1729; G0378; J2543; J3371; J7030; J7050; Q9967

== ENCOUNTER 2025-06-28 06:10 | Day surgery (SDC) | payer MEDICARE, BC ==
[2025-06-28] MEDS ORDERED: Bupivacaine 0.5%/EPINEPHrine 1:200,000 50 ML MDV ONE (07:03)
[2025-06-28] MEDS ORDERED: fentaNYL 250 MCG/5 ML SDV ONE (07:34)
[2025-06-28] MEDS ORDERED: Propofol 200 MG/20 ML SDV ONE (07:35)
[2025-06-28] MEDS ORDERED: Ondansetron 4 MG/2 ML SDV ONE (07:35)
[2025-06-28] MEDS ORDERED: Dexamethasone 4 MG/ML SDV ONE (07:35)
[2025-06-28] MEDS: Lactated Ringers 1,000 ML IV SCH (07:55)
[2025-06-28] MEDS: Bupivacaine 0.25%/EPINEPHrine 1:200,000 30 ML SDV ONE (08:28)
[2025-06-28 10:06] VITALS: BP 147/68; PULSE 69
== END 2025-06-28 10:44 | disposition home or self-care (01) ==
LOC: JP.SDS 06:10
PROVIDERS: ATTEND Surgery
DX: L02.211 Cutaneous abscess of abdominal wall (principal); I11.0 Hypertensive heart disease with heart failure; I50.9 Heart failure, unspecified; E66.01 Morbid (severe) obesity due to excess calories; Z79.01 Long term (current) use of anticoagulants; Z88.8 Allergy status to other drugs, medicaments and biological substances; Z68.21 Body mass index [BMI] 21.0-21.9, adult; Z79.899 Other long term (current) drug therapy
CPT/HCPCS: 11005; 11008; 87070; 87075; 87077; 87186; 87205; J0690; J1100; J2003; J2405; J2704; J3010; J7120; 00400-QZ; J0665; J3490

== ENCOUNTER 2025-07-15 09:32 | Emergency (ER) | payer MEDICARE, BC ==
[2025-07-15 10:50] LABS: BASOPHILS ABSOLUTE AUTO 0.12 K/uL (0.00-0.10); BASOPHILS PERCENT AUTO 1.3 % (0.1-1.3); EOSINOPHILS ABSOLUTE AUTO 0.30 K/uL (0.00-0.40); EOSINOPHILS PERCENT AUTO 3.3 % (0.0-5.4); IMMATURE GRAN ABSOLUTE AUTO 0.03 K/uL (0.00-0.23); IMMATURE GRAN PERCENT AUTO 0.3 % (0.0-0.7); LYMPHOCYTES ABSOLUTE AUTO 1.12 K/uL (0.8-3.3); LYMPHOCYTES PERCENT AUTO 12.4 % (11.4-47.7); MONOCYTES ABSOLUTE AUTO 0.44 K/uL (0.20-0.90); MONOCYTES PERCENT AUTO 4.9 % (3.3-12.6); NEUTROPHILS ABSOLUTE AUTO 7.04 K/uL (1.0-7.6); NEUTROPHILS PERCENT AUTO 77.8 % (40.0-78.1); PLATELET COUNT,PLT 516 K/uL (130-375); RED BLOOD CELL COUNT 3.76 M/uL (3.77-5.24); WHITE BLOOD CELL COUNT,WBC 9.1 K/uL (3.2-11.0)
[2025-07-15 10:55] VITALS: BP 150/79; PULSE 87
[2025-07-15] MEDS: Sodium Chloride 0.9% 10 ML Syringe FLUSH PRN (10:58)
[2025-07-15] MEDS: Iopamidol 612 MG/ML 100 ML Bottle IV PRN (10:58)
[2025-07-15 11:10] LABS: A/G RATIO 0.8 (1.2-2.2); ALANINE AMINOTRANSFERASE,ALT 19 U/L (12-78); ASPARTATE AMNIOTRANSFERASE,AST 23 U/L (15-37); BILIRUBIN TOTAL 0.8 mg/dL (0.2-1.0); BLOOD UREA NITROGEN,BUN 16 mg/dL (7-18); CARBON DIOXIDE,CO2 31 mmol/L (21-32); CHLORIDE,CL 99 mmol/L (100-108); CREATININE 0.5 mg/dL (0.6-1.0); EST CRCL DRUG DOSING (CG) 89.11 mL/min; ESTIMATED GFR 100 mL/min (>60); GLUCOSE RANDOM 115 mg/dL (74-106); POTASSIUM,K 4.4 mmol/L (3.6-5.2); PROTEIN TOTAL,TP 7.2 g/dL (6.4-8.2); SODIUM,NA 136 mmol/L (140-148)
== END 2025-07-15 12:13 | disposition home or self-care (01) ==
LOC: JP.ED 09:32
DX: G89.18 Other acute postprocedural pain (principal); R10.9 Unspecified abdominal pain; K21.9 Gastro-esophageal reflux disease without esophagitis; Z88.1 Allergy status to other antibiotic agents; Z79.899 Other long term (current) drug therapy; Z79.01 Long term (current) use of anticoagulants; Z98.890 Other specified postprocedural states
CPT/HCPCS: 36415; 74177; 80053; 85025; 99284; Q9967